=== PATIENT | male | born 1955 | race African-American/Black ===

== ENCOUNTER 2016-05-25 19:07 | Inpatient (IN) | payer MEDICARE ==
[~2016-05-25] VITALS: Ht 175.3 cm; Wt 78.1 kg
[~2016-05-25 19:07] MED LIST: ALBUTEROL0.83 MG/ML IH; ASPIRIN E.C. 8181 MG PO; ATROVENT INHALE14 GM IH; BROVANA15 MCG/2 M IH; BUDESONIDE0.5 MG/2 M IH; CA; CALCIUM 600 + V1 TAB PO; CAPOTEN 50MG50 MG PO; CARDENE 20MG CA20 M1 PO; SPIRIVA HANDIH18 MCG IH; VITAMIN D32000 I1 PO; ZOCOR 10MG10 MG PO; ZOCOR20 MG PO; [UNRECOGNIZED DRUG - OTHER]; [UNRECOGNIZED DRUG - OTHER]
[2016-05-25 20:47] VITALS: BP 107/69; PULSE 125; TEMP 97.8
[2016-05-25] MEDS ORDERED: CORDARONE200 MG/TAB PO (21:27)
[2016-05-25] MEDS ORDERED: ELIQUIS 5MG PO (21:27)
[2016-05-25] MEDS ORDERED: CARDIZEM 30MG T30 MG PO (21:29)
[2016-05-26] VITALS (10 sets, daily range): BP systolic 89–105; BP diastolic 50–81; PULSE 65–131; TEMP 97–99
[2016-05-26] MEDS ORDERED: ALBUTEROL0.83 MG/ML IH (02:02)
[2016-05-26] MEDS ORDERED: CARDENE 30MG CA30 M1 PO (02:04)
[2016-05-26] MEDS ORDERED: GLASSIA IV (02:19)
[2016-05-26] MEDS ORDERED: BENADRYL25 M2 PO (02:21)
[2016-05-26] MEDS ORDERED: XALATAN EYE DROPS OU (02:22)
[2016-05-26] MEDS ORDERED: LANOXIN 0.120.125 MG PO (02:26)
[2016-05-26] MEDS ORDERED: PULMICORT180 MCG/Ac IH (02:28)
[2016-05-26 10:12] LABS: POTASSIUM 4.4 mmol/L (3.4-5.0)
[2016-05-26 10:29] LABS: INR 1.3 (0.8-3.0); PROTHROMBIN TIME 14.7 SECONDS (9.7-12.8)
[2016-05-26 10:46] LABS: THYROID STIMULATING HORMONE 0.851 uIU/mL (0.465-4.680)
[2016-05-27 04:04] VITALS: BP 96/66; PULSE 62; TEMP 98.4
[2016-05-27 07:41] LABS: HEMATOCRIT 42.7 % (42.0-52.0); HEMOGLOBIN 12.6 g/dl (13.5-18.0); MEAN CELL VOLUME 91 fl (80.0-100.0); MEAN CORPUSCULAR HEMOGLOBIN 27 pg (27.0-31.0); MEAN CORPUSCULAR HGB CONC 30 g/dl (33.0-37.0); MEAN PLATELET VOLUME 10.9 fl (7.4-10.4); PLATELET COUNT 482 K/mm3 (130-400); RED BLOOD COUNT 4.67 M/mm3 (4.20-5.60); REDCELL DISTRIBUTION WIDTH-CV 16.8 % (11.5-14.5); WHITE BLOOD COUNT 12.8 K/mm3 (4.8-10.8)
[2016-05-27 07:47] VITALS: BP 95/55; PULSE 63; TEMP 97.5
[2016-05-27 07:51] LABS: ADD PATHOLOGY DIFF REVIEW NO
[2016-05-27 08:30] LABS: BAND 3 % (0-10); NEUTROPHILS 78 % (42.0-75.2); TOTAL CELLS COUNTED 100
[2016-05-27 11:07] VITALS: BP 94/50; PULSE 73; TEMP 97.7
== END 2016-05-27 18:54 | disposition home or self-care (01) | DRG 308 ==
LOC: MEDICAL 19:07
PROVIDERS: Internal Medicine Interventional Cardiology; Internal Medicine Pulmonary Disease
PROC: 5A2204Z Restoration of Cardiac Rhythm, Single (ICD-10-PCS; principal; 2016-05-26)
DX: I48.92 Unspecified atrial flutter (principal); J18.9 Pneumonia, unspecified organism; J44.0 Chronic obstructive pulmonary disease with (acute) lower respiratory infection; J90 Pleural effusion, not elsewhere classified; I48.91 Unspecified atrial fibrillation; E88.01 Alpha-1-antitrypsin deficiency; I10 Essential (primary) hypertension; I27.2 Other secondary pulmonary hypertension; I42.0 Dilated cardiomyopathy
CPT/HCPCS: OP; J2250; J2704; J7030

== ENCOUNTER → 2016-06-11 | Outpatient (CLI) | payer MEDICARE ==
[~2016-06-11] MED LIST changes: +BENADRYL25 M2 PO; +CARDENE 30MG CA30 M1 PO; +CARDIZEM 30MG T30 MG PO; +CORDARONE200 MG/TAB PO; +ELIQUIS 5MG PO; +GLASSIA IV; +LANOXIN 0.120.125 MG PO; +PULMICORT180 MCG/Ac IH; +XALATAN EYE DROPS OU
== END ==
LOC: COL.PUL 10:30
DX: J44.9 Chronic obstructive pulmonary disease, unspecified (principal)

== ENCOUNTER → 2016-07-14 | Outpatient (CLI) | payer MEDICARE | LOC: COL.VAS 10:00 | DX: I50.22 Chronic systolic (congestive) heart failure (principal) | CPT/HCPCS: C8924; Q9957 ==

== ENCOUNTER 2019-11-24 09:40 | Day surgery (SDC) | payer MEDICARE ==
[~2019-11-24] VITALS: Ht 175.4 cm; Wt 102.5 kg
[2019-11-24 10:08] VITALS: BP 118/94; PULSE 110; TEMP 99.2
[2019-11-24] MEDS ORDERED: LANOXIN 0.25M0.25 MG PO (10:23)
[2019-11-24] MEDS ORDERED: BYSTOLIC2.5 MG PO (10:24)
[2019-11-24] MEDS ORDERED: SIMBRINZA 0.2%-18 ML OD (10:25)
[2019-11-24] MEDS ORDERED: ELIQUIS 5MG PO (10:26)
[2019-11-24] MEDS ORDERED: ATROVENT I0.2 MG/1 M IH (10:27)
[2019-11-24] MEDS ORDERED: XALATAN EYE DROPS OD (10:27)
[2019-11-24] MEDS ORDERED: GLASSIA IV (10:28)
[2019-11-24] MEDS ORDERED: ALBUTEROL0.83 MG/ML IH (10:30)
[2019-11-24] MEDS ORDERED: VITAMIN D31000 I1 PO (10:31)
[2019-11-24] MEDS ORDERED: EPIPEN 2-PAK1 MG/ML IM (10:31)
[2019-11-24] MEDS ORDERED: RT SPIRIVA18 MCG IH (10:32)
[2019-11-24] MEDS ORDERED: BROVANA15 MCG/2 M IH (10:34)
[2019-11-24] MEDS ORDERED: PULMICORT0.5 MG/2 M IH (10:35)
[2019-11-24 10:54] LABS: POTASSIUM 3.7 mmol/L (3.4-5.0)
[2019-11-24 10:55] LABS: INR 1.5 (0.8-3.0); PROTHROMBIN TIME 16.4 SECONDS (9.7-12.8)
--- NOTE | 2019-11-24 12:50 | NUR ---
Soila,PACU nurse to take over pt from Roya Rodriguez RN.
[2019-11-24 13:10] VITALS: BP 104/71; PULSE 67
--- NOTE | 2019-11-24 13:10 | NUR ---
Report from Shannon Cm.pt awake,alert and orientated x 3,respirations even and unlabored.Pt on oxygen as per at home at 3liters.
[2019-11-24 13:15] VITALS: BP 96/80; PULSE 67
[2019-11-24 13:30] VITALS: BP 91/75; PULSE 68
[2019-11-24 13:45] VITALS: BP 104/76; PULSE 67
[2019-11-24 14:00] VITALS: BP 104/71; PULSE 67
--- NOTE | 2019-11-24 14:11 | NUR ---
Discharge instructions given to pt.pt verbalizes understanding.INT removed,catheter tip intact.Pt escorted out via wheelchair by this nurse.
== END 2019-11-24 16:13 | disposition home or self-care (01) ==
LOC: COL.CAR 09:40
PROVIDERS: Internal Medicine Interventional Cardiology
DX: I48.0 Paroxysmal atrial fibrillation (principal); I08.1 Rheumatic disorders of both mitral and tricuspid valves; I10 Essential (primary) hypertension; J44.9 Chronic obstructive pulmonary disease, unspecified; G47.33 Obstructive sleep apnea (adult) (pediatric); I11.0 Hypertensive heart disease with heart failure; I50.9 Heart failure, unspecified; I49.5 Sick sinus syndrome; Z99.81 Dependence on supplemental oxygen; Z20.828 Contact with and (suspected) exposure to other viral communicable diseases; Z87.891 Personal history of nicotine dependence; Z79.82 Long term (current) use of aspirin; I27.20 Pulmonary hypertension, unspecified
CPT/HCPCS: J1644; J2704; J7030

== ENCOUNTER → 2020-09-13 | Outpatient (CLI) | payer MEDICARE ==
[~2020-09-13] MED LIST changes: +ATROVENT I0.2 MG/1 M IH; +BYSTOLIC2.5 MG PO; +EPIPEN 2-PAK1 MG/ML IM; +LANOXIN 0.25M0.25 MG PO; +PULMICORT0.5 MG/2 M IH; +RT SPIRIVA18 MCG IH; +SIMBRINZA 0.2%-18 ML OD; +VITAMIN D31000 I1 PO; +XALATAN EYE DROPS OD
== END ==
LOC: ZCOL.LAB 10:25
DX: Z20.822 Contact with and (suspected) exposure to COVID-19 (principal)